=== PATIENT | male | born 1955 | race Asian ===

== ENCOUNTER 2020-05-31 00:35 | Emergency (ER) | payer OTHER ==
[~2020-05-31] VITALS: Ht 170.2 cm; Wt 65.3 kg
[2020-05-31 01:17] LABS: PLATELET COUNT 167 K/uL (142-355)
[2020-05-31 01:49] VITALS: BP 145/78; TEMP 97.7
[2020-05-31] MEDS ORDERED: AMLODIPINE BESYLATE PO (03:21)
[2020-05-31] MEDS ORDERED: ATOR20TA2 PO (03:23)
[2020-05-31] MEDS ORDERED: DONEPEZIL HYDRO10 MG PO (03:24)
[2020-05-31] MEDS ORDERED: ACID CONTROL20 MG PO (03:25)
[2020-05-31] MEDS ORDERED: LIPITOR40 MG PO (03:25)
[2020-05-31] MEDS ORDERED: CENTRU3 PO (03:27)
[2020-05-31] MEDS ORDERED: FLONASE AL50 MCG/ACT INH (03:28)
[2020-05-31] MEDS ORDERED: LANTUS100 UNIT/M SC (03:29)
[2020-05-31] MEDS ORDERED: LISI10TA11 PO (03:30)
[2020-05-31] MEDS ORDERED: MIRALAX17 GM PO (03:31)
[2020-05-31] MEDS ORDERED: [UNRECOGNIZED DRUG - OTHER] PO (03:32)
[2020-05-31] MEDS ORDERED: TRAZODONE HYDRO50 MG PO (03:33)
[2020-05-31] MEDS ORDERED: MEMA10TA2 PO (03:34)
[2020-05-31] MEDS ORDERED: SEROQUEL100 MG PO (03:35)
[2020-05-31] MEDS ORDERED: DIVA125C PO (03:36)
[2020-05-31] MEDS ORDERED: HALO5INJ3 IM (03:39)
[2020-05-31] MEDS ORDERED: APAP325 MG PO (03:40)
[2020-06-15] MEDS ORDERED: INSU300I SC (09:45)
== END 2020-05-31 01:49 | disposition still patient (30) ==
LOC: ED 00:39
PROVIDERS: Emergency Medicine Emergency Medical Services
DX: F03.91 Unspecified dementia, unspecified severity, with behavioral disturbance (principal); Z11.59 Encounter for screening for other viral diseases; Z04.6 Encounter for general psychiatric examination, requested by authority
CPT/HCPCS: 36415; 80053; 85027; 87635; 93005; 99283; U0003